=== PATIENT | male | born 1975 | race Caucasian/White ===

== ENCOUNTER 2016-08-21 11:27 | Emergency (ER) | payer MEDICAID ==
[~2016-08-21] VITALS: Wt 80.0 kg
[~2016-08-21 11:27] MED LIST: ACET-1145 PO; CLOT30CR24 TOP; IBUP400T22 PO; LORA1TAB54 PO; NAPR-260 PO; PSEU120T51 PO
[2016-08-21 12:46] LABS: URINE BLOOD (Dip) POC Negative (NEGATIVE)
--- NOTE | 2016-08-21 13:02 | RADRPT ---
PROCEDURE: Left knee series CLINICAL INDICATION: Pain. TECHNIQUE: 3 views. COMPARISON: None FINDINGS: No fractures or lesions are noted. Joint spaces are well maintained. No significant osteophytosis is noted. No effusion is identified. No erosions are visualized. The soft tissues are unremarkable. IMPRESSION: 1. No bony abnormalities are identified. RPTAT: HH .Sae Castro MD, MD Date Time Electronically viewed and signed by .Sae Castro MD, on 08/21/2016 13:01 .Emigdio/
[2016-08-21] MEDS ORDERED: CLOT30CR24 TOP (13:06)
[2016-08-21] MEDS ORDERED: ULT50 PO (13:06)
[2016-08-21 13:21] VITALS: BP 141/77; PULSE 75; RESP 18; TEMP 97.3
--- NOTE | 2016-08-21 17:30 | ERD ---
DATE OF SERVICE: HISTORY OF PRESENT ILLNESS: The patient is a 41-year-old male coming complaining of left knee pain. Patient states it has been going on for the last month. He states he feels the knee click when he is walking down stairs. He denies any numbness or tingling, no weakness. The patient is also comp laining of a rash on his abdomen. He states it has been there for the last few days. It is itchy. The patient is also complaining of dysuria and wants an STD screen. Denies any discharge, denies a ny new sexual partners. PAST MEDICAL HISTORY: Denies medical problems. ALLERGIES TO MEDICATIONS: Denies. PAST SURGICAL HISTORY: Denies. SOCIAL HISTORY: Denies. REVIEW OF SYSTEMS: A 12-point review of systems was done. Refer to HPI for positives, all other sy stems negative. PHYSICAL EXAMINATION VITAL SIGNS: Temperature is 96.4, pulse 78, blood pressure is 166/78, respiratory 18, O2 saturation 100% on room air. Pain intensity of 10/10. GENERAL: The patient is well-appearing, well-nourished, no acute distress. HEENT: Atraumatic. Conjunctivae are pink. Pupils equal, round, and reactive to light. There is no s cleral icterus. Tympanic membranes clear bilaterally. Oropharynx clear. No nystagmus or photophobia . CHEST: Clear to auscultation bilaterally. There are no rales, wheezes or rhonchi. HEART: Regular rate and rhythm. No murmurs, clicks, rubs or gallops. No S3 or S4. ABDOMEN: Soft, nontender and nondistended. Good bowel sounds. No rebound or guarding. No gross tab tonitis. No gross organomegaly or masses. No Ventura sign or McBurney point tenderness. EXTREMITIES: Equal pulses bilaterally. There is no peripheral clubbing, cyanosis or edema. No focal swelling or erythema. Full range of motion. Grossly neurovascularly intact. There is crepitus felt on the knee. There is no deformity, no swelling. SKIN: The patient has irregular patches of erythema with some scaling. EMERGENCY ROOM COURSE: The patient had a 3-view x-ray done of the left knee which showed no bony ab normalities identified. The patient was placed in an Corey wrap. The patient also had a urine dip ch ecked in the ER. The patient's urine showed negative leukocytes, negative nitrites, negative protei n, negative glucose, negative blood. Patient's urine was sent for GC chlamydia screening. DIAGNOSIS: 1. Left knee pain. 2. Ringworm. MEDICAL DECISION MAKING: I have low suspicion for life threatening rash, low suspicion for urinary tract infection, nephrolithiasis, septic stone or pyelonephritis. The patient's urine will be sent for culture and he will be treated as if culture results showed positive STD. I have low suspicion for acute fracture or dislocation. Low suspicion for septic joint. Low suspicion for joint effusio n or dislocation. The patient's pain is likely secondary to either meniscal injury or cartilage wit hin the patella. DISCHARGE: The patient is discharged stable. Patient given a prescription for tramadol and clotrim azole and told to follow up with primary care within 1 to 2 days for reevaluation. Patient was told if symptoms progress or worsen to return to the ER. All other questions answered at time of discha rge. Discharge summary given at the time of departure. Patient understood and complied with plan. Dictated By: DANNY GUZMAN for YANETH ABBASI/NTS Conf#: [id number] DID#: [id number]
== END 2016-08-21 13:20 | disposition home or self-care (01) ==
LOC: FTE 11:27
DX: M25.562 Pain in left knee (principal); B35.9 Dermatophytosis, unspecified
CPT/HCPCS: 73562; 81003; 87591

== ENCOUNTER 2016-11-28 10:39 | Emergency (ER) | payer MEDICAID ==
[~2016-11-28] VITALS: Ht 157.5 cm; Wt 71.2 kg
[~2016-11-28 10:39] MED LIST changes: +ACET1TAB40 PO; +AZIT250T94 PO; +IBUP-1542 PO; +TRAM50TA2 PO
[2016-11-28 10:43] VITALS: Ht 157.5 cm; Wt 71.2 kg
[2016-11-28] MEDS ORDERED: KETOROLAC 60 MG INJ IM STA (11:21)
--- NOTE | 2016-11-28 12:05 | RADRPT ---
PROCEDURE: XR Right Shoulder CLINICAL INDICATION: Shoulder pain TECHNIQUE: AP internal and external rotation views and a Y-view were submitted. COMPARISON: None FINDINGS: Osseous structures: appear well mineralized and intact with no fracture or destructive process iden tified. Joint spaces: The glenohumeral joint appears unremarkable. The AC joint appears normal. Soft tissues: appear unremarkable. IMPRESSION: Unremarkable right shoulder. Physician Lana Date Time Electronically viewed and signed by Christian [facility] Physician on 11/28/2016 12:04 /
[2016-11-28] MEDS ORDERED: PRED20TA PO (12:15)
[2016-11-28] MEDS ORDERED: NAPR-260 PO (12:15)
--- NOTE | 2016-11-28 12:21 | ERD ---
ER Documentation Chief Complaint Date/Time DATE: 11/28/16 TIME: 12:17 Chief Complaint RIGHT SHOULDER PAIN X 2 MOS HPI This is a 41-year-old male presents to the ER with right shoulder pain for the last 2 months. Patient went to his primary care doctor and was told he had tendinitis. Patient states that pain is intermittent however today was worse. Pain is worse whenever he tries to abduct his arm or when he is sleeping. Patient denies any trauma. He denies any numbness or tingling of his shoulder. Patient tried ibuprofen with minor improvement. He denies any fevers or chills. Patient denies any chest pain or shortness of breath. ROS 12 point review of systems was done, all negative except per HPI. Medications Home Meds Active Scripts Naproxen* (Naprosyn*) 500 Mg Tablet, 500 MG PO BID Y for PAIN AND/OR INFLAMMATION, #30 TAB Prov:GIFTY HERNANDEZ 11/28/16 Prednisone* (Prednisone*) 20 Mg Tab, 40 MG PO DAILY for 4 Days, TAB Prov:GIFTY HERNANDEZ 11/28/16 Tramadol HCl (Tramadol HCl) 50 Mg Tablet, 50 MG PO Q4 Y for PAIN, #20 TAB Prov:ANA LAURA FAROOQ PA-C 08/21/16 Clotrimazole* (Clotrimazole* AF) 1% - 30 Gm Cream.gm., 1 APPLIC TOP BID for 7 Days, TUB Prov:ANA LAURA FAROOQ PA-C 08/21/16 Ibuprofen* (Motrin*) 400 Mg Tab, 400 MG PO Q6 for PAIN, #30 TAB Prov:MARQUISE FRANCISCO MD 05/11/16 Naproxen* (Naprosyn*) 500 Mg Tablet, 500 MG PO BID Y for PAIN AND/OR INFLAMMATION, #30 TAB Prov:ANA LAURA FAROOQ PA-C 05/03/16 Clotrimazole* (Clotrimazole* AF) 1% - 30 Gm Cream.gm., 1 APPLIC TOP BID for 7 Days, TUB Prov:ANA LAURA FAROOQ PA-C 05/03/16 Acetaminophen-Codeine (Tylenol With Codeine #3 Tablet) 300-30 Mg Tablet, 1 TAB PO Q4H Y for PAIN, #20 TAB Prov:KENISHA ABREU DO 10/17/15 Pseudoephedrine Hcl (Sudafed 12 Hour) 120 Mg Tablet.sa, 120 MG PO BID, #30 Prov:KENISHA ABREU DO 10/17/15 Reported Medications Loratadine/Pseudoephedrine* (Claritin-D* 12 Hr) 5-120 Mg Tab.er.12h, 1 TAB PO Q12, #60 TAB.SA 10/16/15 Allergies Allergies: Coded Allergies: No Known Allergy (Unverified , 11/28/16) PMhx/Soc Medical and Surgical Hx: pt denies Medical Hx, pt denies Surgical Hx History of Surgery: No Anesthesia Reaction: No Hx Neurological Disorder: No Hx Respiratory Disorders: No Hx Cardiac Disorders: No Hx Psychiatric Problems: No Hx Miscellaneous Medical Probl: Yes (HEPATITIS) Hx Alcohol Use: No Hx Substance Use: No Hx Tobacco Use: No Smoking Status: Never smoker Physical Exam Vitals Vital Signs Date Time Temp Pulse Resp B/P Pulse Ox O2 Delivery O2 Flow Rate FiO2 11/28/16 10:43 98.1 62 18 135/67 99 Physical Exam GENERAL: The patient is well developed and appropriate for usual state of health , in no apparent distress. HEENT: Atraumatic. Conjunctivae are pink. Pupils equal, round, and reactive to light. Extraocular muscles are grossly intact. Bilateral tympanic membranes are clear with no evidence of erythema, effusion or dulling of the light reflex. The oropharynx is clear with no erythema or exudates. NECK: C-spine is soft and supple. There is no cervical lymphadenopathy. CHEST: Clear to auscultation bilaterally. There are no rales, wheezes or rhonchi. HEART: Regular rate and rhythm. No murmurs, clicks, rubs or gallops. EXTREMITIES: Right shoulder: Patient is tender to palpation along the bicipital tendon. There is no AC joint tenderness. Patient has normal extension and action of the shoulder. He does have normal abduction however it is painful. Normal abduction with no pain. Painful internal rotation however full range of motion. Negative drop arm test. Patient does not have any elbow tenderness, normal range of motion of the elbow. No clavicle tenderness. NEURO: Alert and oriented. Results 24 hrs Current Medications Medications (Trade) Dose Ordered Sig/Louis Route PRN Reason Start Time Stop Time Status Last Admin Dose Admin Ketorolac Tromethamine (Toradol) 60 mg ONCE STAT IM 11/28/16 11:21 11/28/16 11:23 DC 11/28/16 11:31 Procedures/MDM Differential diagnosis includes but is not limited to; shoulder sprain, frozen shoulder, bicipital tendinitis, rotator cuff tear, fracture, dislocation, impingement syndrome, clavicle fracture. This is a 41-year-old male presents to the ER with right shoulder pain for the last 2 months. Patient was tender to palpation over the right bicipital tendon is likely tendinitis. Patient was requesting MRI, however MRI is not indicated at this time as patient has full range of motion of the shoulder he is neurovascularly intact and he is intact to radial ulnar and median nerves. Patient is afebrile and well-appearing. His x-ray was negative for any fractures or dislocations. Patient was given some Toradol here in the ER and he felt significantly better. He will be sent home with a short course of steroids and naproxen. Patient urgently to follow- up with his primary care doctor return to ER sooner if symptoms worsen. My medical decision making was shared with the patient he understands and agrees with plan. Departure Diagnosis: Primary Impression: Tendonitis Condition: Stable Patient Instructions: Tendonitis Additional Instructions: Call your primary care doctor TOMORROW for an appointment during the next 1-2 days.See the doctor sooner or return here if your condition worsens before your appointment time. GIFTY HERNANDEZ Nov 28, 2016 12:20
[2016-11-28 12:22] VITALS: BP 125/67; PULSE 75; RESP 19; TEMP 98.3
== END 2016-11-28 12:23 | disposition home or self-care (01) ==
LOC: FTE 10:39
DX: M75.21 Bicipital tendinitis, right shoulder (principal)
CPT/HCPCS: 73030; J1885; 96372

== ENCOUNTER 2017-04-25 12:13 | Emergency (ER) | payer MEDICAID ==
[~2017-04-25] VITALS: Ht 167.6 cm; Wt 79.0 kg
[~2017-04-25 12:13] MED LIST changes: -ACET1TAB40 PO; -AZIT250T94 PO; -IBUP-1542 PO; +PRED20TA PO
[2017-04-25 12:42] VITALS: Ht 167.6 cm; Wt 79.0 kg
--- NOTE | 2017-04-25 17:41 | ERD ---
ER Documentation Chief Complaint Date/Time DATE: 04/25/17 TIME: 17:38 Chief Complaint right shoulder pain radiates to neck; symptoms x 2 months HPI This 42-year-old male patient presents to emergency department today for right sided neck pain scapular and triceps pain intermitted x 3-4 months treated in the past with Naprosyn. Patient reports right hand and arm weakness. Decreased sensation. Denies any known injury, patient reports progressive worsening over the last several months. ROS All systems reviewed and are negative except as per history of present illness. Medications Home Meds Active Scripts Naproxen* (Naprosyn*) 500 Mg Tablet, 500 MG PO BID Y for PAIN AND/OR INFLAMMATION, #30 TAB Prov:GIFTY HERNANDEZ 11/28/16 Prednisone* (Prednisone*) 20 Mg Tab, 40 MG PO DAILY for 4 Days, TAB Prov:IGFTY HERNANDEZ 11/28/16 Tramadol HCl (Tramadol HCl) 50 Mg Tablet, 50 MG PO Q4 Y for PAIN, #20 TAB Prov:ANA LAURA FAROOQ PA-C 08/21/16 Clotrimazole* (Clotrimazole* AF) 1% - 30 Gm Cream.gm., 1 APPLIC TOP BID for 7 Days, TUB Prov:ANA LAURA FAROOQ PA-C 08/21/16 Ibuprofen* (Motrin*) 400 Mg Tab, 400 MG PO Q6 for PAIN, #30 TAB Prov:MARQUISE FRANCISCO MD 05/11/16 Naproxen* (Naprosyn*) 500 Mg Tablet, 500 MG PO BID Y for PAIN AND/OR INFLAMMATION, #30 TAB Prov:ANA LAURA FAROOQ PA-C 05/03/16 Clotrimazole* (Clotrimazole* AF) 1% - 30 Gm Cream.gm., 1 APPLIC TOP BID for 7 Days, TUB Prov:ANA LAURA FAROOQ PA-C 05/03/16 Acetaminophen-Codeine (Tylenol With Codeine #3 Tablet) 300-30 Mg Tablet, 1 TAB PO Q4H Y for PAIN, #20 TAB Prov:KENISHA ABREU DO 10/17/15 Pseudoephedrine Hcl (Sudafed 12 Hour) 120 Mg Tablet.sa, 120 MG PO BID, #30 Prov:KENISHA ABREU DO 10/17/15 Reported Medications Loratadine/Pseudoephedrine* (Claritin-D* 12 Hr) 5-120 Mg Tab.er.12h, 1 TAB PO Q12, #60 TAB.SA 10/16/15 Allergies Allergies: Coded Allergies: No Known Allergy (Unverified , 11/28/16) PMhx/Soc History of Surgery: No Anesthesia Reaction: No Hx Neurological Disorder: No Hx Respiratory Disorders: No Hx Cardiac Disorders: No Hx Psychiatric Problems: No Hx Miscellaneous Medical Probl: Yes (HEPATITIS) Hx Alcohol Use: No Hx Substance Use: No Hx Tobacco Use: No Physical Exam Vitals Vital Signs Date Time Temp Pulse Resp B/P Pulse Ox O2 Delivery O2 Flow Rate FiO2 04/25/17 12:42 98.6 79 18 129/70 97 Vitals stable, triage notes reviewed Physical Exam Const: Well-nourished well-hydrated well appearing male patient, no acute distress Head: Atraumatic Eyes: Normal Conjunctiva, PERRLA, EOMI ENT: Normal External Ears, Nose and Mouth. Neck: Mucous membranes moist rigid positioning, no cervical point tenderness, palpable paraspinal tenderness, trapezial tenderness, and right parascapular/rhomboid tenderness. Resp: Clear to auscultation bilaterally No rales wheezes or rhonchi, no respiratory distress Cardio: Abd: Skin: Back: No midline Rhomboid/paraspinal tenderness Ext: Bilateral upper extremities symmetric, right hand writer technical publications weaker than left hand writer technical publications, Neuro: M/S: Alert and oriented Face: EOMI, face and pharynx with normal sensation and function Motor: Right hand weakness and left Sensation: Decreased right arm sensation when compared to left arm Speech: Normal Cerebel: Normal coordination Normal gait Normal finger to nose DTR: 2+ and symmetric upper/lower extremities Psych: Normal Mood and Affect Results 24 hrs Current Medications Medications (Trade) Dose Ordered Sig/Louis Route PRN Reason Start Time Stop Time Status Last Admin Dose Admin Ketorolac Tromethamine (Toradol) 15 mg ONCE STAT IM 04/25/17 17:42 04/25/17 17:44 DC 04/25/17 18:09 Diazepam (Valium) 5 mg ONCE ONCE PO 04/25/17 18:00 04/25/17 18:01 DC 04/25/17 18:02 Procedures/MDM PROCEDURE: XR Cervical Spine. CLINICAL INDICATION: Cervical spine pain. TECHNIQUE: AP, lateral and odontoid views of the cervical spine were performed. The images were reviewed on a PACS workstation. COMPARISON: None available FINDINGS: The alignment of the cervical spine is within normal limits. There is a linear low density projected over the tendons, most suggestive of overlapping shadows of the lateral mass of C1. The vertebral body height and osseous mineralization are normal. There is no evidence of fracture or dislocation. There is no significant facet arthropathy. The uncovertebral joints are unremarkable. The intervertebral disc spaces are well maintained. There are no abnormal calcifications. The prevertebral soft tissues are normal. No radiopaque foreign bodies are identified. IMPRESSION: 1. Low density projected over the dens, most likely related to overlapping shadows of the lateral mass of C1. CT is recommended to exclude underlying fracture. 2. Otherwise, normal radiographs of the cervical spine. No significant degenerative disc disease or evidence of fracture. Electronically viewed and signed by .Matty Caro MD, on 04/25/2017 20: 07 PROCEDURE: CT Cervical Spine without contrast. CLINICAL INDICATION: Cervical spine pain, suspected fracture. TECHNIQUE: The study was performed on a multislice multidetector CT scanner. Spiral axial 1 mm images were obtained through the cervical spine and reformatted at 2.5 mm slice thickness without contrast. 1 or more of the following dose reduction techniques were utilized: Automated exposure control, adjustment of the mA and/or kV according to patient's size, iterative reconstruction technique. Coronal and sagittal reformations were obtained. The images were reviewed on a PACS workstation. RADIATION DOSE: CTDIvol: 22.2 mGy DLP: 461.9 mGy-cm COMPARISON: No prior studies are available for comparison. FINDINGS: There is diffuse straightening the cervical spine without reversal of normal cervical lordosis. The dens is normal in appearance without evidence of fracture. C1 is normal in appearance. The vertebral body heights are maintained. There is no evidence of fracture or dislocation. The marrow density is within normal limits. The intervertebral disc spaces appear normal. The cervical canal is unremarkable. There is a no bone destruction or sclerosis. The paraspinal soft tissues are unremarkable. No significant paraspinal soft tissue swelling. C2-3: The posterior margin of the disc, thecal sac and neural foramina are normal in appearance. C3-4: There is a 1-2 mm posterior disc/osteophyte complex. The thecal sac is patent. There is mild bilateral facet hypertrophy and moderate right uncovertebral joint spondylosis. There is severe right and mild left neural foraminal narrowing. C4-5: There is a 1-2 mm posterior disc/osteophyte complex. The thecal sac it is patent. There is mild bilateral facet hypertrophy and mild right uncovertebral joint spondylosis. There is moderate right neural foraminal narrowing. The left neural foramen is patent. C5-6: There is a 1-2 mm posterior disc/osteophyte complex. The thecal sac and neural foramina are patent. There is mild bilateral facet spondylosis. C6-7: There is a 2.1 mm posterior disc/osteophyte complex asymmetric to the left paracentral region. The thecal sac is patent. There is mild bilateral facet hypertrophy mild left uncovertebral joint spondylosis. There is moderate left neural foraminal narrowing. The right neural foramen is patent. C7-T1: The posterior margin of the disc, thecal sac and neural foramina are normal in appearance. IMPRESSION: 1. No acute abnormality of the cervical spine. No evidence of fracture or dislocation. There is a thin, evidence of dense fracture. 2. Multilevel mild spondylosis without significant narrowing of the cervical thecal sac. 3. Straightening of the cervical spine which may be related paraspinal muscle spasm versus positioning. 4. Multilevel facet and uncovertebral joint spondylosis with severe narrowing of the right C3-4 neural foramen. Other mild to moderate foraminal narrowings as discussed above. The above findings were discussed with Patient's physician Lita Godwin by telephone on 04/25/2017 9:39:16 PM. Electronically viewed and signed by .Matty Caro MD, on 04/25/2017 21: 41 This 42-year-old male patient presents to emergency department for evaluation of progressive worsening of right arm weakness, neck pain, scapular pain. Patient was seenAnd treated for right shoulder tendinitis November 28, 2016 at that time symptoms have been present for 2 months. Patient had a shoulder x- ray negative for any fracture dislocation or subluxation. Patient was sent home with tendinitis as the diagnosis, was instructed to call his primary care physician the following day for an appointment for referral to have MRI. Patient states that he has not been seen by his primary care physician, he was prescribed Naprosyn which seems to be helping. Patient now reports symptoms have worsened once again he has right hand weakness right arm weakness with decreased sensation to touch on right arm. Today's emergency room course includes Toradol, Valium, and a C-spine x-ray x- ray was positive for fracture versus shadowing and a CAT scan was suggested by radiologist. CAT scan placed results as read by radiologist as no acute abnormality of the cervical spine. No evidence of fracture or dislocation. There is a thin evidence of a dens fracture. 2 multilevel spondylosis without significant narrowing of the cervical thecal sac. 3 straightening of the cervical spine which may be related to paraspinal muscle spasm versus positioning. Multilevel faceted and on convertible joint spondylosis with severe narrowing of C3-4 neural foramen at there are mild to moderate foraminal narrowing is discussed above Plan to discharge patient home with Medrol Dosepak, Naprosyn, and short dose of Valium. Instructed to follow-up with primary care physician for referral to [facility] participation specialist. Patient is stable with no new complaints during ER course, clinically there is no current evidence to suggest meningitis, Cervical fracture, cervical abscess, cervical mass, or any other emergent condition appearing to require further evaluation or hospitalization. I feel the patient is stable for discharge at this time. I have discussed results, examination findings, the treatment plan with the patient and family present prior to discharge. Indications for emergent reevaluation, side effects of medication were also discussed. All questions were answered. Patient verbalizes understanding and agrees with plan of care. 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 Please ask your nurse or provider if you have questions about your care today and do not leave until all your questions have been answered. Please use any medications given as directed and follow-up with your doctor (or the doctor you were referred to) in the next 2-3 days. If you do not have a primary care doctor you may follow up at the [facility] (listed below). You may also use motrin and tylenol as needed for fever and/or pain unless instructed otherwise by your provider or nurse. Indications for more urgent follow-up have been discussed, but you may return to the Emergency Department at ANY time for any worrisome or worsening symptoms. If you have abdominal pain, please know that no test or exam you received is perfect and you should follow up within 8 hours for continued pain. If you had any imaging studies today, such as an X-Ray or CT Scan, these studies will be reviewed later by a radiologist. You will be called if there are important findings that were not identified today, so make sure the contact information you provided at registration is correct. If you received any narcotic pain control medicine today, such as Vicodin, Morphine or Dilaudid, your coordination and judgment may be affected for a number of hours. Please do not drive or operate heavy machinery, and you may want someone to assist you at home. If you were given a prescription for narcotic medication, be aware that it is very addictive- use sparingly and only if necessary. LITA GODWIN Apr 25, 2017 17:41
[2017-04-25] MEDS ORDERED: KETOROLAC 15 MG INJ IM STA (17:42)
[2017-04-25] MEDS ORDERED: DIAZEPAM 5 MG TAB PO ONE (18:00)
--- NOTE | 2017-04-25 20:07 | RADRPT ---
PROCEDURE: XR Cervical Spine. CLINICAL INDICATION: Cervical spine pain. TECHNIQUE: AP, lateral and odontoid views of the cervical spine were performed. The images were re viewed on a PACS workstation. COMPARISON: None available FINDINGS: The alignment of the cervical spine is within normal limits. There is a linear low density projecte d over the tendons, most suggestive of overlapping shadows of the lateral mass of C1. The vertebral body height and osseous mineralization are normal. There is no evidence of fracture or dislocation. There is no significant facet arthropathy. The uncovertebral joints are unremarkable. The interverte bral disc spaces are well maintained. There are no abnormal calcifications. The prevertebral soft ti ssues are normal. No radiopaque foreign bodies are identified. IMPRESSION: 1. Low density projected over the dens, most likely related to overlapping shadows of the lateral m ass of C1. CT is recommended to exclude underlying fracture. 2. Otherwise, normal radiographs of the cervical spine. No significant degenerative disc disease o r evidence of fracture. RPTAT: HGAS .Matty Caro MD, Date Time Electronically viewed and signed by .Matty Caro MD, on 04/25/2017 20:07 .S/
--- NOTE | 2017-04-25 21:41 | RADRPT ---
PROCEDURE: CT Cervical Spine without contrast. CLINICAL INDICATION: Cervical spine pain, suspected fracture. TECHNIQUE: The study was performed on a multislice multidetector CT scanner. Spiral axial 1 mm im ages were obtained through the cervical spine and reformatted at 2.5 mm slice thickness without cont rast. 1 or more of the following dose reduction techniques were utilized: Automated exposure contr ol, adjustment of the mA and/or kV according to patient's size, iterative reconstruction technique. Coronal and sagittal reformations were obtained. The images were reviewed on a PACS workstation. RADIATION DOSE: CTDIvol: 22.2 mGyDLP: 461.9 mGy-cm COMPARISON: No prior studies are available for comparison. FINDINGS: There is diffuse straightening the cervical spine without reversal of normal cervical lordosis. The dens is normal in appearance without evidence of fracture. C1 is normal in appearance. The vertebra l body heights are maintained. There is no evidence of fracture or dislocation. The marrow density is within normal limits. The intervertebral disc spaces appear normal. The cervical canal is unrema rkable. There is a no bone destruction or sclerosis. The paraspinal soft tissues are unremarkable. No significant paraspinal soft tissue swelling. C2-3: The posterior margin of the disc, thecal sac and neural foramina are normal in appearance. C3-4: There is a 1-2 mm posterior disc/osteophyte complex. The thecal sac is patent. There is mild bilateral facet hypertrophy and moderate right uncovertebral joint spondylosis. There is severe righ t and mild left neural foraminal narrowing. C4-5: There is a 1-2 mm posterior disc/osteophyte complex. The thecal sac it is patent. There is mi ld bilateral facet hypertrophy and mild right uncovertebral joint spondylosis. There is moderate rig ht neural foraminal narrowing. The left neural foramen is patent. C5-6: There is a 1-2 mm posterior disc/osteophyte complex. The thecal sac and neural foramina are p atent. There is mild bilateral facet spondylosis. C6-7: There is a 2.1 mm posterior disc/osteophyte complex asymmetric to the left paracentral region . The thecal sac is patent. There is mild bilateral facet hypertrophy mild left uncovertebral joint spondylosis. There is moderate left neural foraminal narrowing. The right neural foramen is patent. C7-T1: The posterior margin of the disc, thecal sac and neural foramina are normal in appearance. IMPRESSION: 1. No acute abnormality of the cervical spine. No evidence of fracture or dislocation. There is a thin, evidence of dense fracture. 2. Multilevel mild spondylosis without significant narrowing of the cervical thecal sac. 3. Straightening of the cervical spine which may be related paraspinal muscle spasm versus position ing. 4. Multilevel facet and uncovertebral joint spondylosis with severe narrowing of the right C3-4 layne ral foramen. Other mild to moderate foraminal narrowings as discussed above. The above findings were discussed with Patient's physician Alicia Godwin by telephone on 9:39:16 PM. RPTAT: [facility]AS .Matty Caro MD, Date Time Electronically viewed and signed by .Matty Caro MD, on 04/25/2017 21:41 .S/
[2017-04-25] MEDS ORDERED: MED4DP PO (21:58)
[2017-04-25] MEDS ORDERED: NAPR-260 PO (21:59)
[2017-04-25] MEDS ORDERED: DIAZ-90 PO (21:59)
[2017-04-25 22:49] VITALS: BP 143/84; PULSE 76; RESP 16
== END 2017-04-25 22:50 | disposition left against medical advice (07) ==
LOC: FTE 12:13
DX: M47.22 Other spondylosis with radiculopathy, cervical region (principal); M62.838 Other muscle spasm
CPT/HCPCS: 72040; 72125; 96372; J1885; Z7502; Z7610

== ENCOUNTER 2017-11-13 11:48 | Emergency (ER) | END 2017-11-13 11:50 | disposition left against medical advice (07) ==

== ENCOUNTER 2018-01-28 20:25 | Emergency (ER) | END 2018-01-28 22:40 | disposition home or self-care (01) ==

== ENCOUNTER 2018-02-13 05:11 | Emergency (ER) | END 2018-02-13 07:42 | disposition home or self-care (01) ==